=== PATIENT | female | born 1990 | race Caucasian/White ===

== ENCOUNTER 2022-07-19 11:18 | Outpatient (REF) | payer BC, SELFPAY ==
[2022-07-19 11:39] LABS: MANUAL DIFF FLAG NO
[2022-07-19 12:19] LABS: Basophils Percent Auto 0.5 % (0-2); Eosinophils Absolute Auto 0.1 X10*3/uL (0.0-0.4); Eosinophils Percent Auto 1.4 % (0-4); Hematocrit 38.6 % (37.0-47.0); Hemoglobin 12.6 g/dl (12.0-16.0); Imm Gran Abs Auto 0.02 X10*3/uL (0.00-0.03); Imm Gran Pct Auto 0.3 % (0.0-0.4); Lymphocytes Absolute Auto 2.1 X10*3/uL (1.2-4.9); Lymphocytes Percent Auto 27.2 % (20-40); Mean Corpuscular HGB Conc 32.6 g/dl (31.0-35.0); Mean Corpuscular Hemoglobin 26.8 pg (27.0-33.0); Mean Platelet Volume 11.2 fL (9.4-12.3); Monocytes Absolute Auto 0.5 X10*3/uL (0.1-1.2); Monocytes Percent Auto 6.8 % (2-11); Neutrophils Absolute Auto 4.8 x10*3/uL (2.0-8.3); Neutrophils Percent Auto 63.8 % (45-73); Platelet Count 231 X10*3/uL (160-400); Red Blood Count 4.71 X10*6/uL (4.20-5.50); Red Cell Distribution Width 14.1 % (11.0-16.0); White Blood Count 7.6 X10*3/uL (4.8-10.8)
[2022-07-19 13:02] LABS: Alanine Aminotransferase 8 U/L (0-31); Albumin Level 4.3 g/dL (3.5-5.0); Alkaline Phosphatase 56 U/L (39-117); Amylase 78 U/L (28-100); Aspartate Amino Transferase 15 U/L (5-31); Bilirubin Direct < 0.2 mg/dL (0.0-0.5); Bilirubin Total 0.6 mg/dL (0.0-1.0); Lipase 33 U/L (8-78); Total Protein 7.2 g/dL (6.5-8.0)
== END 2022-07-19 11:19 | disposition home or self-care (01) ==
LOC: HO.LAB 11:18
PROVIDERS: Visit Provider Registered Nurse
DX: R10.9 Unspecified abdominal pain (principal)
CPT/HCPCS: 36415; 80076; 82150; 83690; 85025

== ENCOUNTER 2023-07-10 10:29 | Outpatient (REF) | payer BC, SELFPAY ==
--- NOTE | ~2023-07-10 | US_ITS ---
EXAMINATION: US RIGHT GROIN, LIMITED/FOLLOW UP CLINICAL INFORMATION: Right groin pain, no prior imaging. COMPARISON: None available. TECHNIQUE: Targeted ultrasound images were obtained by the retail service technician of the area of concern as indicated by the patient in the right groin region. Radiologist was not in attendance. Images were later provided for interpretation. FINDINGS: No discrete hernia, mass or fluid collection identified in the area of concern indicated by the patient in the right groin region. Limited visualization due to bowel gas. Incidental note of a 3.2 x 2.1 x 1.8 cm right ovarian cyst. The right ovary measures 4.9 x 3.1 x 3.5 cm, volume 27.3 mL. Small amount of free fluid in the right adnexa and in the cul-de-sac. US/US pelvic limited IMPRESSION: 1. No discrete hernia, mass or fluid collection identified in the area of concern indicated by the patient in the right groin region. Limited visualization due to bowel gas. 2. Incidental note of a 3.2 cm right ovarian cyst. Small amount of free fluid in the right adnexa and in the cul-de-sac. Correlation with clinical exam and dedicated pelvic ultrasound recommended for further evaluation.
== END 2023-07-10 10:30 | disposition home or self-care (01) ==
LOC: HO.US 10:29
PROVIDERS: Visit Provider Registered Nurse
DX: R10.31 Right lower quadrant pain (principal)
CPT/HCPCS: 76857